=== PATIENT | male | born 1990 | race Caucasian/White ===

== ENCOUNTER 2021-01-26 21:43 | Emergency (ER) | payer BC ==
[2021-01-27] MEDS ORDERED: AUGMENTIN 875-1 EACH PO (01:21)
== END 2021-01-27 01:50 | disposition home or self-care (01) ==
LOC: ER1 21:43
DX: S02.40CA Maxillary fracture, right side, initial encounter for closed fracture (principal); S02.841A Fracture of lateral orbital wall, right side, initial encounter for closed fracture; F17.200 Nicotine dependence, unspecified, uncomplicated; Y04.2XXA Assault by strike against or bumped into by another person, initial encounter
CPT/HCPCS: 70450; 70486; 72125; 99284; G0480